=== PATIENT | female | born 2000 | race Caucasian/White ===

== ENCOUNTER → 2020-07-13 14:12 | Outpatient (CLI) | payer OTHER, MEDICAID, SELFPAY | PROVIDERS: Visit Provider Physician Assistant | DX: R35.0 Frequency of micturition (principal) | CPT/HCPCS: 87077; 87086; 87186 ==

== ENCOUNTER → 2020-07-21 16:27 | Outpatient (CLI) | payer OTHER, MEDICAID, SELFPAY | PROVIDERS: Visit Provider Physician Assistant | DX: N30.01 Acute cystitis with hematuria (principal) | CPT/HCPCS: 87086 ==

== ENCOUNTER → 2020-07-30 13:48 | Outpatient (CLI) | payer OTHER, MEDICAID, SELFPAY | PROVIDERS: Visit Provider Physician Assistant | DX: R31.9 Hematuria, unspecified (principal) | CPT/HCPCS: 87077; 87086 ==

== ENCOUNTER 2020-08-08 14:07 | Emergency (ER) | payer OTHER, MEDICAID, SELFPAY ==
[2020-08-08] VITALS (11 sets, daily range): BP systolic 94–125; BP diastolic 63–72; PULSE 67–100; RESP 14–16; TEMP 36.6–37.1; O2SAT 95–100; BMI 23.8
--- NOTE | 2020-08-08 15:46 | PC.NURSE ---
orders placed per verbal order
--- NOTE | 2020-08-08 15:52 | ED.FEMALEGU ---
HPI - Female Genitourinary General Chief complaint: Urogenital-Female Stated complaint: kidney stone Time Seen by Provider: 08/08/20 15:51 Source: patient Mode of arrival: Ambulatory Limitations: no limitations History of Present Illness HPI Narrative: This is a 19-year-old female comes with complaint of kidney stone or concern for kidney stone. She states she has had hematuria that she has noted in her urine and has been seen. She states she was treated for a bladder infection. She finished antibiotics. She states she did a self swab for potential STDs, she noted some blood when she did swell up she followed up the next day had a full well-woman exam with what sounds like genital cultures, she did not have a Pap smear but did have a pelvic exam and was told there was no vaginal bleeding hand that her swabs were negative. She has not had fevers, she has had nausea. She has had intermittent abdominal and flank pain. Stop typically on the left side. It comes in waves and is not constant it is not present currently. She gets nauseated when she has these episodes. She has not had any diarrhea, no constipation. She has had some dysuria occasionally, no frequency at this time, no urgency. She has noticed some color changes consistent with hematuria. She has not had a period for 1.5 months because she started oral contraceptives and is skipping her menses. She denies other medical issues currently. Denies any prior surgeries. Related Data Home Medications Medication Instructions Recorded Confirmed atenolol 25 mg tablet 25 mg PO DAILY 07/13/20 07/30/20 escitalopram oxalate 5 mg tablet 5 mg PO DAILY 07/13/20 07/30/20 lamotrigine 300 mg tablet,extended 300 mg PO DAILY 07/13/20 07/30/20 release 24 hr quetiapine 25 mg tablet 25 mg PO BEDTIME 07/13/20 07/30/20 Previous Rx's Medication Instructions Recorded meloxicam [Mobic] 7.5 mg PO BID #10 tab 08/08/20 tamsulosin [Flomax] 0.4 mg PO DAILY #7 cap 08/08/20 Allergies Allergy/AdvReac Type Severity Reaction Status Date / Time Penicillins Allergy Unknown Verified 07/30/20 13:32 Review of Systems Review of Systems ROS Unobtainable: All systems reviewed & are unremarkable except as noted in HPI and below Patient History alcohol intake frequency: 0-2 drinks per day Substance Use Type: marijuana Exam Narrative Exam Narrative: GENERAL: Alert and oriented x three, well-nourished, well-appearing female in mild distress. HEENT: Head normocephalic, atraumatic, EOMI, pupils reactive, face symmetric, moist mucous membranes NECK: Supple, full range of motion CARDIOVASCULAR: Regular rate and rhythm without murmurs, rubs or gallops. RESPIRATORY: Breath sounds equal bilaterally, no wheezes rales or rhonchi. ABDOMEN: Soft, nontender. Normoactive bowel sounds all 4 quadrants. No guarding or rebound, rigidity, no mass : No CVA tenderness. Patient politely defers pelvic exam as she just had one and by description had cultures. EXTREMITIES: Normal range of motion, no clubbing or edema. Neurovascularly intact NEUROLOGICAL: Cranial nerves II through XII grossly intact. Moving all extremities SKIN: Warm, dry, no petechiae, no rashes or lesions. Initial Vital Signs Initial Vital Signs: Vital Signs Temperature 98.7 F 08/08/20 14:11 Pulse Rate 100 H 08/08/20 14:11 Respiratory Rate 16 08/08/20 14:11 Blood Pressure 116/65 08/08/20 14:11 Pulse Oximetry 100 08/08/20 14:11 Course Orders Ordered: ED Orders 08/08/20 15:21 Complete Blood Count AUTO DIFF Stat Comprehensive Metabolic Panel Stat Lipase Stat Partial Thromboplastin Time Stat Prothrombin Time INR Stat 08/08/20 16:03 US abdomen complete Stat Discontinued Medications Meloxicam (Meloxicam 7.5 Mg Tablet) 7.5 mg PO NOW ONE Stop: 08/08/20 18:47 Last Admin: 08/08/20 19:02 Dose: 7.5 mg Documented by: HALEY Vital Signs Vital signs: Vital Signs - 8 hr 08/08/20 14:11 08/08/20 15:20 08/08/20 15:21 Temperature 98.7 F Pulse Rate 100 H 84 74 Respiratory Rate 16 Blood Pressure 116/65 125/72 Pulse Oximetry 100 97 98 08/08/20 15:30 08/08/20 16:00 08/08/20 16:30 Temperature Pulse Rate 67 99 H 75 Respiratory Rate Blood Pressure 110/63 118/71 107/65 Pulse Oximetry 97 96 100 08/08/20 17:00 08/08/20 17:30 08/08/20 18:00 Temperature Pulse Rate 73 73 72 Respiratory Rate Blood Pressure 103/70 94/65 101/66 Pulse Oximetry 98 97 96 08/08/20 18:30 08/08/20 19:15 Temperature 97.8 F Pulse Rate 77 72 Respiratory Rate 14 Blood Pressure 101/65 98/68 Pulse Oximetry 95 100 MDM - Female Genitourinary Lab Data Attestation: I reviewed the patient's lab results. Result diagrams: 08/08/20 15:21 08/08/20 15:21 Labs: Lab Results 08/08/20 08/08/20 08/08/20 Range/Units 15:21 15:21 15:21 WBC 12.0 H (4.5-11.0) X10^3/uL RBC 4.93 (4.0-5.2) X10^6/uL Hgb 14.3 (12.0-16.0) g/dL Hct 44.3 (36-46) % MCV 89.9 (80-100) fL MCH 29.1 (26-34) PG MCHC 32.4 (30-36) % RDW 13.8 (11.6-14.8) % Plt Count 308 (150-400) X10^3/uL Neut % (Auto) 60.3 (50-75) % Lymph % (Auto) 32.8 (25-40) % [place] % (Auto) 5.4 (3-14) % Eos % (Auto) 0.8 L (2-4) % Baso % (Auto) 0.7 (0-2) % Neut # (Auto) 7200 H (8696-4998) /uL Lymph # (Auto) 3900 (7294-7500) /uL [place] # (Auto) 600 (0-900) /uL Eos # (Auto) 100 (0-450) /uL Baso # (Auto) 100 (0-100) /uL PT 11.5 (10.1-12.7) SECONDS INR 1.0 (0.9-1.3) APTT 29 (26.4-36.2) SECONDS Sodium 136 L (137-145) mmol/L Potassium 3.8 (3.4-5.1) mmol/L Chloride 103 (98-107) mmol/L Carbon Dioxide 25 (22-32) mmol/L BUN 8 (7-17) mg/dL Creatinine 0.65 (0.52-1.04) mg/dL Estimated GFR > 60.0 (>60) mL/min BUN/Creatinine Ratio 12.3 (6-22) Glucose 86 (70-100) mg/dL Calcium 9.5 (8.4-10.2) mg/dL Total Bilirubin 0.3 (0.2-1.3) mg/dL AST 23 (14-36) IU/L ALT 9 (<35) IU/L Alkaline Phosphatase 61 (38-126) U/L Total Protein 8.3 H (6.3-8.2) g/dL Albumin 4.6 (3.5-5.0) g/dL Globulin 3.7 (1.7-4.1) g/dL Albumin/Globulin Ratio 1.2 (1.0-2.8) Lipase 61 (23-300) U/L Point of Care Testing Test Results Negative Urine Dip Bedside Urine Glucose Negative Bedside Urine Bilirubin - Negative Bedside Urine Ketone - Negative Urine Specific Prue 1.020 Bedside Urine Occult Blood + Bedside Urine pH 6.0 Bedside Urine Protein - Negative Bedside Urine Urobilinogen - Negative Bedside Urine Nitrite - Negative Bedside Urine Leukocytes - Negative Esterase Imaging Data US - abdomen: Radiologist's Impression: [address] [id number] ReportSigned Patient: Reba Partida#: [id number]: 2000Acct:[id number]/Sex: 19 / FDate of Service: 08/08/20Loc: EDAccession Number: [id number] Procedure: US abdomen complete Ordering Provider: Bonnie Blanton D.O. PROCEDURE: US ABDOMEN COMPLETE INDICATIONS: abdominal pain, left flank pain, hematuria, nausea TECHNIQUE: Real-time scanning was performed of the abdominal and retroperitoneal organs, with image documentation. COMPARISON: None. FINDINGS: Liver: Liver is normal in size and homogeneous in echotexture. Gallbladder: Nondilated. No stones or sludge. Normal gallbladder wall thickness. No pericholecystic fluid. Negative sonographic Anderson's sign. Biliary ducts: Intrahepatic bile ducts are non-dilated. Extrahepatic bile duct caliber measures 3 mm. Normal is 6-7 mm or less in diameter, or 10 mm or less post-cholecystectomy. Pancreas: Visualized portions of the pancreas are sonographically normal. Spleen: Spleen is within normal limits in size and homogeneous in echotexture. Measures 8.4 cm. Kidneys: Kidneys are normal in size and echotexture. Right kidney measures 10.2 cm long; left kidney measures 9.8 cm long. No hydronephrosis or nephrolithiasis. No solid masses. Aorta: Visualized aorta is normal in caliber at less than 3 cm. Iliacs: Proximal common iliac arteries are normal in caliber at less than 2.5 cm. IVC: Intrahepatic inferior vena cava is patent. Miscellaneous: No free abdominal fluid. IMPRESSION: 1. No hydronephrosis. 2. No acute cholecystitis. No gallstones. 3. No free fluid seen. Dictated by: David Saavedra M.D. on 08/08/2020 at 16:03 Approved by: David Saavedra M.D. on 08/08/2020 at 16:05 [facility] Narrative Medical decision making narrative: 20-year-old female comes in with complaint of hematuria and intermittent flank and abdominal pain. Patient may have had kidney stones she is asymptomatic currently. She had a evaluation with pelvic exam, cultures that was negative in the last several days. She states that they did not know any vaginal bleeding at that time. Patient labs and imaging do not show a clear source although kidney stones are not always visualized on ultrasound imaging. Discharge Plan Departure Patient Disposition: Home Clinical Impression: Hematuria Instructions: DI for Hematuria Activity Restrictions/Additional Instructions: Follow-up with your physician for recheck for your hematuria. Also included is a referral to urology. Your labs do so hematuria or blood in your urine. Labs otherwise do not show any major abnormalities. There is no signs of infection in your urine today. Your ultrasound not show any major changes to the kidneys or other potential causes for hematuria at this time. There is a possibility that you have had kidney stones or passed them. Take Flomax 1 tablet every day x7 days You may take Tylenol up to a 1000 mg every 8 hours You may take mobic 1 tablet every 12 hours as needed for pain. You may take this medication with the Tylenol. Return to the ER for fevers, worsening or severe back, flank pain, abdominal pain, persistent vomiting, black or bloody stool, inability urinate, increasing amounts of blood in your urine, vaginal discharge or other new or concerning symptoms. Prescriptions: New tamsulosin [Flomax] 0.4 mg capsule 0.4 mg PO DAILY Qty: 7 RF: 0 meloxicam [Mobic] 7.5 mg tablet 7.5 mg PO BID Qty: 10 RF: 0 No Action atenolol 25 mg tablet 25 mg PO DAILY RF: 0 lamotrigine [Lamictal XR] 300 mg tablet extended release 24hr 300 mg PO DAILY RF: 0 escitalopram oxalate 5 mg tablet 5 mg PO DAILY RF: 0 quetiapine 25 mg tablet 25 mg PO BEDTIME RF: 0 Referrals: Malik Pearce MD [Physician] - Miscellaneous,MD Kisha [Primary Care Provider] -
[2020-08-08 15:55] LABS: Prothrombin Time 11.5 SECONDS (10.1-12.7)
[2020-08-08 15:58] LABS: PTT Partial Thromboplastin Tim 29 SECONDS (26.4-36.2)
[2020-08-08 15:59] LABS: Alanine Aminotransferase 9 IU/L (<35); Albumin 4.6 g/dL (3.5-5.0); Albumin Globulin Ratio 1.2 (1.0-2.8); Alkaline Phosphatase 61 U/L (38-126); Aspartate Aminotransferase 23 IU/L (14-36); BUN Creatinine Ratio 12.3 (6-22); Bilirubin Total 0.3 mg/dL (0.2-1.3); Blood Urea Nitrogen 8 mg/dL (7-17); Calcium 9.5 mg/dL (8.4-10.2); Carbon Dioxide 25 mmol/L (22-32); Chloride 103 mmol/L (98-107); Estimated Glomerular Filt Rate > 60.0 mL/min (>60); Globulin 3.7 g/dL (1.7-4.1); Glucose 86 mg/dL (70-100); HEMOLYSIS < 15 (0-50); Lipase 61 U/L (23-300); Potassium 3.8 mmol/L (3.4-5.1); Sodium 136 mmol/L (137-145); Total Protein 8.3 g/dL (6.3-8.2)
[2020-08-08 16:01] LABS: Add Manual Diff / Slide Review NO; Basophils Absolute Auto 100 /uL (0-100); Basophils Percent Auto 0.7 % (0-2); Eosinophils Absolute Auto 100 /uL (0-450); Eosinophils Percent Auto 0.8 % (2-4); Hematocrit 44.3 % (36-46); Hemoglobin 14.3 g/dL (12.0-16.0); Lymphocytes Absolute Auto 3900 /uL (1100-4500); Lymphocytes Percent Auto 32.8 % (25-40); Mean Corpuscular HGB Conc 32.4 % (30-36); Mean Corpuscular Hemoglobin 29.1 PG (26-34); Mean Corpuscular Volume 89.9 fL (80-100); Monocytes Absolute Auto 600 /uL (0-900); Monocytes Percent Auto 5.4 % (3-14); Neutrophils Absolute Auto 7200 /uL (1500-7000); Neutrophils Percent Auto 60.3 % (50-75); Platelet Count 308 X10^3/uL (150-400); Red Blood Cell Count 4.93 X10^6/uL (4.0-5.2); Red Cell Distribution Width 13.8 % (11.6-14.8)
--- NOTE | 2020-08-08 16:03 | DI.US.S_ITS ---
PROCEDURE: US ABDOMEN COMPLETE INDICATIONS: abdominal pain, left flank pain, hematuria, nausea TECHNIQUE: Real-time scanning was performed of the abdominal and retroperitoneal organs, with image documentation. COMPARISON: None. FINDINGS: Liver: Liver is normal in size and homogeneous in echotexture. Gallbladder: Nondilated. No stones or sludge. Normal gallbladder wall thickness. No pericholecystic fluid. Negative sonographic Anderson's sign. Biliary ducts: Intrahepatic bile ducts are non-dilated. Extrahepatic bile duct caliber measures 3 mm. Normal is 6-7 mm or less in diameter, or 10 mm or less post-cholecystectomy. Pancreas: Visualized portions of the pancreas are sonographically normal. Spleen: Spleen is within normal limits in size and homogeneous in echotexture. Measures 8.4 cm. Kidneys: Kidneys are normal in size and echotexture. Right kidney measures 10.2 cm long; left kidney measures 9.8 cm long. No hydronephrosis or nephrolithiasis. No solid masses. Aorta: Visualized aorta is normal in caliber at less than 3 cm. Iliacs: Proximal common iliac arteries are normal in caliber at less than 2.5 cm. IVC: Intrahepatic inferior vena cava is patent. Miscellaneous: No free abdominal fluid. IMPRESSION: 1. No hydronephrosis. 2. No acute cholecystitis. No gallstones. 3. No free fluid seen. Dictated by: David Saavedra M.D. on 08/08/2020 at 16:03 Approved by: David Saavedra M.D. on 08/08/2020 at 16:05
[2020-08-08] MEDS: MELOXICAM 7.5 MG TABLET PO (19:02)
== END 2020-08-08 19:15 | disposition home or self-care (01) ==
PROVIDERS: Emergency Provider Emergency Medicine
DX: R31.9 Hematuria, unspecified (principal); R10.9 Unspecified abdominal pain; R11.0 Nausea; R30.0 Dysuria
CPT/HCPCS: 36415; 76700; 80053; 81003; 81025; 83690; 85025; 85610; 85730; 99283; 99284

== ENCOUNTER → 2020-08-10 16:31 | Outpatient (CLI) | payer OTHER, MEDICAID, SELFPAY | PROVIDERS: Visit Provider Specialist | DX: N39.0 Urinary tract infection, site not specified (principal); R10.2 Pelvic and perineal pain; Z87.440 Personal history of urinary (tract) infections; Z84.1 Family history of disorders of kidney and ureter | CPT/HCPCS: 81002; 87086; 99214 ==

== ENCOUNTER → 2020-08-23 11:46 | Outpatient (CLI) | payer OTHER, MEDICAID, SELFPAY ==
--- NOTE | 2020-08-23 11:55 | DI.CT.S_ITS ---
PROCEDURE: CT ABDOMEN PELVIS WO CON INDICATIONS: Personal history of urinary (tract) infections TECHNIQUE: Noncontrast 5 mm thick sections acquired from the diaphragms to the symphysis. 5 mm thick coronal and sagittal reformats were then performed. For radiation dose reduction, the following was used: automated exposure control, adjustment of mA and/or kV according to patient size. COMPARISON: None. FINDINGS: Image quality: Lung bases: Lung bases are clear. Heart size is normal. Urinary system: Both kidneys are normal in size. No kidney stones. No hydronephrosis or perinephric fat stranding. Both ureters appear non-dilated throughout their expected courses. Bladder wall thickness is normal; no calcified bladder stones. Other solid organs: Liver is normal in size. The gallbladder is grossly unremarkable. Pancreas is normal in contours. Spleen is normal in size. No adrenal nodules. Peritoneum and bowel: Unenhanced bowel loops demonstrate normal wall thickness and caliber. No free fluid or air. Normal appendix. Nodes and vessels: No retroperitoneal or mesenteric adenopathy by size criteria. Aorta and inferior vena cava are normal in caliber. Abdominal wall: No ventral hernias. Pelvis: No free pelvic fluid. No inguinal hernias or adenopathy. There is an ovoid left adnexal structure measuring 2.2 x 1.9 cm which is suspicious for dermoid although technically nonspecific and continued surveillance could be performed with ultrasound. Bones: No suspicious bony lesions. No vertebral body compression fractures. IMPRESSION: No urolithiasis or evidence of urinary obstruction. Incidentally noted 2.2 cm left adnexal fat containing lesion which is highly suspicious for dermoid although technically nonspecific. Recommend gynecological consultation and management with ultrasound surveillance as clinically warranted. Dictated by: Schuyler Echevarria M.D. on 08/23/2020 at 12:26 Approved by: Schuyler Echevarria M.D. on 08/23/2020 at 12:37
== END ==
PROVIDERS: Referring Provider Specialist; Visit Provider Specialist
DX: R19.09 Other intra-abdominal and pelvic swelling, mass and lump (principal); Z87.440 Personal history of urinary (tract) infections
CPT/HCPCS: 74176; Q9967

== ENCOUNTER → 2020-09-09 09:12 | Outpatient (CLI) | payer OTHER, MEDICAID, SELFPAY ==
--- NOTE | 2020-09-09 09:14 | DI.US.S_ITS ---
PROCEDURE: US PELVIC COMPLETE INDICATIONS: LEFT OVARIAN DERMOID TECHNIQUE: Real-time scanning was performed of the pelvic organs, with image documentation. Additional endovaginal scanning was necessary due to incomplete visualization of the adnexal and endometrial structures by transabdominal scanning. COMPARISON: [facility], CT, CT ABDOMEN PELVIS WO CON, 08/23/2020, 11:49. FINDINGS: Uterus: Uterus is normal in size at 7.5 x 3.8 x 4.5 cm. The endometrium measures 5 mm in combined thickness. Ovaries: The right ovary measures 3 x 1.5 x 1.9 cm and demonstrates an unremarkable sonographic appearance. The left ovary measures 3.6 x 2.2 x 3.6 cm. Within the left ovary, there is an echogenic irregular nonvascular mass that measures 2.8 x 1.9 x 2.7 cm. Normal appearing arterial waveforms are confirmed to each ovary. Other: No pathologic free abdominal or pelvic fluid. IMPRESSION: There is again seen a left ovarian mass, which has an imaging appearance most consistent with the given history of an ovarian dermoid. Dictated by: Braxton George M.D. on 09/09/2020 at 10:16 Approved by: Braxton George M.D. on 09/09/2020 at 10:18
== END ==
PROVIDERS: Referring Provider Specialist; Visit Provider Specialist
DX: D27.1 Benign neoplasm of left ovary (principal)
CPT/HCPCS: 76830; 76856